=== PATIENT | female | born 1980 | race Asian ===

== ENCOUNTER 2021-06-08 17:33 | Emergency (ER) | payer MEDICAID ==
[2021-06-08] MEDS ORDERED: KETOROLAC 10 MG TAB PO ONE (19:03)
--- NOTE | 2021-06-08 19:03 | Emergency Department Report ---
ED ENT HPI - General Chief complaint: Sore Throat Stated complaint: MOUTH PAIN Time Seen by Provider: 06/08/21 18:09 Source: patient Mode of arrival: Ambulatory Limitations: No Limitations - History of Present Illness Initial comments: 40-year-old female presents to the ER today with complaints of diffuse mouth pain, as well as pain in her nose again and a headache. Patient states that she has been having these symptoms for about a 1 week. She states that she is not sure if the pain in her mouth is related to her tooth, but she is is having diffuse mouth pain. She also reports sore throat, and she is also had cold-like symptoms including rhinorrhea and nasal congestion for the past week. She denies any facial swelling, throat or tongue swelling. She denies any apparent lesions in her mouth. She denies any fever or chills. She denies any drooling, difficulty opening her mouth, difficulty breathing, fever chills or any additional symptoms at this time. MD complaint: other (Mouth pain, CHOW, nose pain ) -: week(s) (1) - Related Data Previous Rx's Medication Instructions Recorded Last Taken Type Amoxicillin [Trimox CAP] 500 mg PO Q8H #30 capsule 06/08/21 Unknown Rx Ketorolac [Toradol] 10 mg PO Q6H PRN #20 tablet 06/08/21 Unknown Rx Nystas/Diphen/Xyl Visc/Mylanta 15 ml MM Q4H PRN #120 ml 06/08/21 Unknown Rx [Magic Mouthwash] Allergies Allergy/AdvReac Type Severity Reaction Status Date / Time milk Allergy Rash Verified 06/08/21 17:39 ED Dental HPI - General Chief complaint: Sore Throat Stated complaint: MOUTH PAIN Time Seen by Provider: 06/08/21 18:09 Source: patient Mode of arrival: Ambulatory Limitations: No Limitations - Related Data Previous Rx's Medication Instructions Recorded Last Taken Type Amoxicillin [Trimox CAP] 500 mg PO Q8H #30 capsule 06/08/21 Unknown Rx Ketorolac [Toradol] 10 mg PO Q6H PRN #20 tablet 06/08/21 Unknown Rx Nystas/Diphen/Xyl Visc/Mylanta 15 ml MM Q4H PRN #120 ml 06/08/21 Unknown Rx [Magic Mouthwash] Allergies Allergy/AdvReac Type Severity Reaction Status Date / Time milk Allergy Rash Verified 06/08/21 17:39 ED Review of Systems ROS: Stated complaint: MOUTH PAIN Other details as noted in HPI Comment: All other systems reviewed and negative Constitutional: denies: chills, fever ENT: throat pain, congestion, other (Mouth pain, rhinorrhea) Respiratory: denies: cough, shortness of breath, SOB with exertion, SOB at rest, wheezing Cardiovascular: denies: chest pain, palpitations, dyspnea on exertion, edema, syncope, paroxysmal nocturnal dyspnea Gastrointestinal: denies: abdominal pain, nausea, diarrhea, constipation, hematemesis, hematochezia Genitourinary: denies: urgency, dysuria, discharge Musculoskeletal: denies: back pain, joint swelling, arthralgia Neurological: headache. denies: numbness, paresthesias, confusion, abnormal gait, vertigo Psychiatric: denies: anxiety, depression, auditory hallucinations, visual hallucinations, homicidal thoughts, suicidal thoughts Hematological/Lymphatic: denies: easy bleeding, easy bruising, swollen glands ED Past Medical Hx - Past Medical History Additional medical history: GOUT - Surgical History Additional Surgical History: BRAIN SURGERY - Medications Home Medications: Home Medications Medication Instructions Recorded Confirmed Last Taken Type Amoxicillin [Trimox CAP] 500 mg PO Q8H #30 capsule 06/08/21 Unknown Rx Ketorolac [Toradol] 10 mg PO Q6H PRN #20 tablet 06/08/21 Unknown Rx Nystas/Diphen/Xyl Visc/Mylanta 15 ml MM Q4H PRN #120 ml 06/08/21 Unknown Rx [Magic Mouthwash] ED Physical Exam - General Limitations: No Limitations General appearance: alert, anxious, other (Tearful) - Head Head exam: Present: atraumatic, normocephalic, normal inspection - Eye Eye exam: Present: normal appearance, PERRL, EOMI Pupils: Present: normal accommodation - ENT ENT exam: Present: normal exam, normal orophraynx, mucous membranes moist, other (Patient does have poor dentition, but no apparent signs of dental tenderness or abscess. No lesions noted in the mouth. No tongue or posterior pharynx swelling. She does have maxillary sinus tenderness as well as frontal sinus tenderness.) - Neck Neck exam: Present: normal inspection, full ROM, other (No facial or anterior neck cellulitis. No facial anterior neck swelling.). Absent: meningismus - Respiratory Respiratory exam: Present: normal lung sounds bilaterally. Absent: respiratory distress, wheezes, rales, rhonchi - Cardiovascular Cardiovascular Exam: Present: regular rate, normal rhythm, normal heart sounds - Neurological Exam Neurological exam: Present: alert, oriented X3, CN II-XII intact, normal gait - Psychiatric Psychiatric exam: Present: normal affect, normal mood - Skin Skin exam: Present: intact ED Course Vital Signs 06/08/21 17:40 Temperature 98.9 F Pulse Rate 85 Respiratory 18 Rate Blood Pressure 113/94 [Right] O2 Sat by Pulse 100 Oximetry ED Medical Decision Making - Medical Decision Making Patient does have some poor dentition, but overall patient oral exam including dental exam unremarkable. She has no specific area of dental tenderness. She has no oral lesion, no exudate to suggest thrush, no apparent signs of swelling or no signs of like a dental abscess. He has no facial swelling, cellulitis, tonsils and posterior pharynx are unremarkable. She has no trismus or drooling. She has no stridor. Her airway is intact. She has no meningeal signs on exam. She is not toxic or ill-appearing. She is neurologically intact with a normal gait. Her vital signs are stable. She does have maxillary and frontal sinus tenderness and she has had a cold for about a week. The pressure that she is feeling in her jaw, the roof of her mouth, and in her nose could likely related to sinus infection. Informed patient that her symptoms could be due to a sinus infection, and therefore she will be prescribed antibiotics and also medication to help her pain and help decongest the sinuses. Recommend that she follows up with her dentist and her PCP. Patient expressed understanding agree with plan. Patient stable at time of discharge. Critical care attestation.: If time is entered above; I have spent that time in minutes in the direct care of this critically ill patient, excluding procedure time. ED Disposition Clinical Impression: Acute bacterial sinusitis, Mouth pain Disposition: 01 HOME / SELF CARE / HOMELESS Is pt being admited?: No Does the pt Need Aspirin: No Condition: Stable Instructions: Sinusitis, Adult, [id number] Additional Instructions: I recommend that you take the amoxicillin as prescribed. I also recommend that you take the Zyrtec and use the Flonase to help open up his sinuses as presc ribed. Take the Toradol as prescribed for pain. You can also use the Magic mouthwash that will also help your mouth pain. Follow-up with your PCP or dentist. Return to the ER if symptoms worsens. Prescriptions: Nystas/Diphen/Xyl Visc/Mylanta [Magic Mouthwash] 15 ml MM Q4H PRN #120 ml PRN Reason: Mouth Pain Ketorolac [Toradol] 10 mg PO Q6H PRN #20 tablet PRN Reason: Pain Amoxicillin [Trimox CAP] 500 mg PO Q8H #30 capsule Referrals: PRIMARY CARE, [Referring] - 3-5 Days Forms: Work/School Release Form(ED) Time of Disposition: 19:18
[2021-06-08 20:00] VITALS: BP 112/85
== END 2021-06-08 19:59 | disposition home or self-care (01) ==
LOC: ED 17:33
DX: J01.90 Acute sinusitis, unspecified (principal); K13.79 Other lesions of oral mucosa; Z91.011 Allergy to milk products
CPT/HCPCS: 99282

== ENCOUNTER 2021-09-03 13:37 | Emergency (ER) | payer MEDICAID ==
--- NOTE | 2021-09-03 15:41 | Emergency Department Report ---
ED General Adult HPI - General Chief complaint: Abdominal Pain Stated complaint: Right-sided abdominal pain Time Seen by Provider: 09/03/21 15:01 Source: patient Mode of arrival: Ambulatory Limitations: No Limitations - History of Present Illness Initial comments: The patient is a 41-year-old female who presents to the ER today with a complaint of right flank, right lower quadrant pain and right-sided back pain. She does not believe that she is having dysuria. She was seen at an outpatient urgent care center, possibly diagnosed with a UTI or kidney stone, and started on Macrobid. She presents because her pain is getting worse. Positive mild headache. Positive nausea, no vomiting. No chest pain. Positive diarrhea. No extremity weakness or numbness. Positive feminine/vaginal discharge. No history of STI that she is aware Patient denies oral contraceptive use, travel, surgery, immobilization, DVT/PE risk factors -: Gradual, week(s) Location: back, abdomen Radiation: back Quality: stabbing, aching Improves with: rest Worsens with: movement - Related Data Previous Rx's Medication Instructions Recorded Last Taken Type Acetaminophen [Non-Aspirin Extra 500 mg PO Q6HR PRN #30 tablet 09/03/21 Unknown Rx Strength] DOXYCYCLINE Hyclate [Vibramycin] 100 mg PO Q12HR #28 capsule 09/03/21 Unknown Rx Ibuprofen [Motrin] 600 mg PO Q8H PRN #30 tablet 09/03/21 Unknown Rx Metoclopramide [Reglan] 10 mg PO QID PRN #30 tablet 09/03/21 Unknown Rx Allergies Allergy/AdvReac Type Severity Reaction Status Date / Time milk Allergy Rash Verified 06/08/21 17:39 ED Review of Systems ROS: Stated complaint: PAIN RT SIDE BACK BODY/HEADACHE Other details as noted in HPI Constitutional: denies: fever Eyes: denies: eye discharge ENT: denies: epistaxis Respiratory: denies: cough Cardiovascular: denies: chest pain Gastrointestinal: abdominal pain Genitourinary: hematuria Musculoskeletal: denies: back pain Neurological: headache ED Past Medical Hx - Past Medical History Additional medical history: GOUT - Surgical History Additional Surgical History: BRAIN SURGERY - Medications Home Medications: Home Medications Medication Instructions Recorded Confirmed Last Taken Type Acetaminophen [Non-Aspirin Extra 500 mg PO Q6HR PRN #30 tablet 09/03/21 Unknown Rx Strength] DOXYCYCLINE Hyclate [Vibramycin] 100 mg PO Q12HR #28 capsule 09/03/21 Unknown Rx Ibuprofen [Motrin] 600 mg PO Q8H PRN #30 tablet 09/03/21 Unknown Rx Metoclopramide [Reglan] 10 mg PO QID PRN #30 tablet 09/03/21 Unknown Rx ED Physical Exam - General Limitations: No Limitations General appearance: alert, in no apparent distress - Head Head exam: Present: atraumatic, normocephalic - Eye Eye exam: Present: normal appearance, EOMI. Absent: nystagmus - ENT ENT exam: Present: normal exam, normal orophraynx, mucous membranes moist, normal external ear exam - Neck Neck exam: Present: normal inspection, full ROM. Absent: tenderness, meningismus - Respiratory Respiratory exam: Present: normal lung sounds bilaterally. Absent: respiratory distress, wheezes, rales, rhonchi, stridor, decreased breath sounds - Cardiovascular Cardiovascular Exam: Present: regular rate, normal rhythm, normal heart sounds. Absent: bradycardia, tachycardia, irregular rhythm, systolic murmur, diastolic murmur, rubs, gallop - GI/Abdominal GI/Abdominal exam: Present: soft, tenderness, guarding, other (Right flank and right upper quadrant tender. Right lower quadrant tender.). Absent: distended, rebound, rigid, pulsatile mass - Extremities Exam Extremities exam: Present: normal inspection, full ROM, other (2+ pulses noted in the bilateral upper and lower extremities. There is no palpable cord. negative Homans sign. Muscular compartments are soft. The pelvis is stable.). Absent: pedal edema, calf tenderness - Back Exam Back exam: Present: normal inspection, full ROM, CVA tenderness (R). Absent: CVA tenderness (L), paraspinal tenderness, vertebral tenderness - Neurological Exam Neurological exam: Present: alert, oriented X3, other (No facial droop. Tongue midline. Extraocular movements intact bilaterally. Facial sensation intact to light touch in V1, V2, V3 distribution bilaterally. 5 and a 5 strength in 4 ext remities. Sensation intact to light touch in 4 extremities.). Absent: motor sensory deficit - Psychiatric Psychiatric exam: Present: normal affect, normal mood - Skin Skin exam: Present: warm, dry, intact, normal color. Absent: rash ED Course Vital Signs 09/03/21 13:47 Temperature 97.4 F L Pulse Rate 77 Respiratory 18 Rate Blood Pressure 103/73 O2 Sat by Pulse 98 Oximetry - Reevaluation(s) Reevaluation #1: 09/03/21 17:20 Differential diagnosis, including but not limited to: Pyelonephritis, renal colic, PID, appendicitis inflammatory bowel disease Assessment and plan: 41-year-old female with low-grade white count, presenting with right flank, right lower quadrant abdominal pain. She is very tender. We will treat her symptoms. We will obtain urinalysis, CT scan of the abdomen pelvis, and perform pelvic examination. Discussed this with the patient. She articulates understanding. She denies DVT and pulmonary embolism risk factors, she is low risk by Wells criteria for pulmonary embolism, and she is PERC negative. She further reports that she is not and has not delivered her given in the past 6 weeks. 09/03/21 17:21 09/03/21 18:35 Patient feels improved. She had cervical motion tenderness and adnexal tenderness. She also reported multiple sexual partners with intermittent barrier protection. I am suspicious for pelvic inflammatory disease. Urinalysis reviewed and appreciated, demonstrates pyuria, with bacteriuria. CT scan abdomen shows no acute findings, ovarian cyst noted. Patient counseled that we suspect that PID is the active diagnosis. She may discontinue Macrobid. Start ceftriaxone and doxycycline here in the emergency room, and discharged with appropriate antibiotics. Patient counseled to follow- up with outpatient primary care doctor, health department, or lighting technician. She articulated understanding. On final reassessment, she is smiling, comfortable, endorses improvement in pain, and is drinking water without difficulty ED Medical Decision Making - Lab Data Result diagrams: 09/03/21 15:03 09/03/21 15:03 Vital Signs 09/03/21 13:47 Temperature 97.4 F L Pulse Rate 77 Respiratory 18 Rate Blood Pressure 103/73 O2 Sat by Pulse 98 Oximetry Lab Results 09/03/21 09/03/21 09/03/21 Range/Units 15:03 15:03 15:03 WBC 12.2 H (4.5-11.0) K/mm3 RBC 3.51 L (3.65-5.03) M/mm3 Hgb 11.6 (10.1-14.3) gm/dl Hct 35.4 (30.3-42.9) % MCV 101 H (79-97) fl MCH 33 H (28-32) pg MCHC 33 (30-34) % RDW 13.3 (13.2-15.2) % Plt Count 199 (140-440) K/mm3 Lymph % (Auto) 31.5 (13.4-35.0) % [place] % (Auto) 8.5 H (0.0-7.3) % Eos % (Auto) 0.3 (0.0-4.3) % Baso % (Auto) 0.1 (0.0-1.8) % Lymph # (Auto) 3.8 (1.2-5.4) K/mm3 [place] # (Auto) 1.0 H (0.0-0.8) K/mm3 Eos # (Auto) 0.0 (0.0-0.4) K/mm3 Baso # (Auto) 0.0 (0.0-0.1) K/mm3 Seg Neutrophils % 59.6 (40.0-70.0) % Seg Neutrophils # 7.3 (1.8-7.7) K/mm3 Sodium 141 (137-145) mmol/L Potassium 3.3 L (3.6-5.0) mmol/L Chloride 107.8 H (98-107) mmol/L Carbon Dioxide 26 (22-30) mmol/L Anion Gap 11 mmol/L BUN 11 (7-17) mg/dL Creatinine 0.5 L (0.6-1.2) mg/dL Estimated GFR > 60 ml/min BUN/Creatinine Ratio 22 % Glucose 97 (65-100) mg/dL Calcium 8.3 L (8.4-10.2) mg/dL Magnesium (1.7-2.3) mg/dL Total Bilirubin 0.20 (0.1-1.2) mg/dL AST 8 (5-40) units/L ALT 11 (7-56) units/L Alkaline Phosphatase 51 (35-129) units/L Total Creatine Kinase (30-135) units/L Total Protein 5.8 L (6.3-8.2) g/dL Albumin 3.1 L (3.9-5) g/dL Albumin/Globulin Ratio 1.1 % HCG, Qual Negative (Negative) 09/03/21 Range/Units 15:03 WBC (4.5-11.0) K/mm3 RBC (3.65-5.03) M/mm3 Hgb (10.1-14.3) gm/dl Hct (30.3-42.9) % MCV (79-97) fl MCH (28-32) pg MCHC (30-34) % RDW (13.2-15.2) % Plt Count (140-440) K/mm3 Lymph % (Auto) (13.4-35.0) % Free[place] % (Auto) (0.0-7.3) % Eos % (Auto) (0.0-4.3) % Baso % (Auto) (0.0-1.8) % Lymph # (Auto) (1.2-5.4) K/mm3 Free[place] # (Auto) (0.0-0.8) K/mm3 Eos # (Auto) (0.0-0.4) K/mm3 Baso # (Auto) (0.0-0.1) K/mm3 Seg Neutrophils % (40.0-70.0) % Seg Neutrophils # (1.8-7.7) K/mm3 Sodium (137-145) mmol/L Potassium (3.6-5.0) mmol/L Chloride (98-107) mmol/L Carbon Dioxide (22-30) mmol/L Anion Gap mmol/L BUN (7-17) mg/dL Creatinine (0.6-1.2) mg/dL Estimated GFR ml/min BUN/Creatinine Ratio % Glucose (65-100) mg/dL Calcium (8.4-10.2) mg/dL Magnesium 1.70 (1.7-2.3) mg/dL Total Bilirubin (0.1-1.2) mg/dL AST (5-40) units/L ALT (7-56) units/L Alkaline Phosphatase (35-129) units/L Total Creatine Kinase 30 (30-135) units/L Total Protein (6.3-8.2) g/dL Albumin (3.9-5) g/dL Albumin/Globulin Ratio % HCG, Qual (Negative) - Radiology Data Radiology results: pending, report reviewed, image reviewed CT ABDOMEN AND PELVIS WITH CONTRAST HISTORY: acute rlq pain. COMPARISON: None. TECHNIQUE: CT images of the abdomen and pelvis were obtained following administration of intravenous contrast. All CT scans at this location are performed using CT dose reduction for ALARA by means of automated exposure control. CONTRAST: 100 ml of intravenous contrast administered. FINDINGS: Lungs/bones: Lung bases are clear. No acute osseous abnormality identified. Abdomen/pelvis: The liver, gallbladder, spleen, pancreas, adrenals, kidneys, and proximal GI tract appear unremarkable. There is a simple left ovarian cyst measuring 3.2 cm with trace pelvic free fluid which is likely physiologic in a woman of this age. The right ovary and uterus appear normal. No acute colonic abnormality identified. Terminal ileum is normal. IMPRESSION: 1. Simple left ovarian cyst. Otherwise nothing acute. Signer Name: Alo Patel MD Signed: 09/03/2021 5:09 PM Workstation Name: [id number] Critical care attestation.: If time is entered above; I have spent that time in minutes in the direct care of this critically ill patient, excluding procedure time. ED Disposition Clinical Impression: Acute abdominal pain in right flank, Bacteriuria with pyuria, Hypokalemia, Left ovarian cyst Disposition: 01 HOME / SELF CARE / HOMELESS Is pt being admited?: No Does the pt Need Aspirin: No Condition: Good Instructions: Abdominal Pain (ED), Pelvic Inflammatory Disease Additional Instructions: Patient receiving treatment today to cover the pelvic inflammatory disea se/gonorrhea/chlamydia. Cultures were sent today, and results will be available next 3-5 days. Please have your primary care doctor call the medical records department to obtain your culture results. Take the antibiotic therapy as directed. Take the nausea medication and pain medication as directed. I recommend outpatient testing for sexually transmitted diseases, including hepatitis, syphilis and HIV. I also recommend that you abstain from sexual activity until you have completed her antibiotic therapy, a physician states that it is safe for you to resume sexual activity, and any partners that you have been sexually active with have been tested/treated/evaluated for sexual transmitted diseases. Patient is also found to have mild hypokalemia today. Patient may consume foods that are high in potassium, such as banana, avocado, or potato. Ovarian cyst left side likely asymptomatic, probable incidental finding for 41-year-old female. Please follow-up with physician within 3-5 days. I recommend that you return to the ER right away with worsening pain, migration of pain, intractable nausea/vomiting, inability tolerate liquid feeds. Please return to the emergency room right away with new pain, worsened pain, migration of pain, projectile vomiting, change in mental status, confusion, inability tolerate liquid feeds, new, worsened or different symptoms not present on the initial emergency room evaluation Referrals: PRIMARY CARE, [Primary Care Provider] - 3-5 Days [facility] [Provider Group] - 3-5 Days [facility] [Provider Group] - 3-5 Days [facility] [Outside] - 3-5 Days Forms: Work/School Release Form(ED)
[2021-09-03 15:42] LABS: Basophils % (Auto) 0.1 % (0.0-1.8); Eosinophils % (Auto) 0.3 % (0.0-4.3); Hematocrit 35.4 % (30.3-42.9); Hemoglobin 11.6 gm/dl (10.1-14.3); Lymphocytes # (Auto) 3.8 K/mm3 (1.2-5.4); Lymphocytes % (Auto) 31.5 % (13.4-35.0); Mean Corpuscular HGB Conc 33 % (30-34); Mean Corpuscular Volume 101 fl (79-97); Monocytes % (Auto) 8.5 % (0.0-7.3); Platelet Count 199 K/mm3 (140-440); Red Blood Count 3.51 M/mm3 (3.65-5.03); Red Cell Distribution Width 13.3 % (13.2-15.2)
[2021-09-03 15:44] LABS: Alanine Aminotransferase 11 units/L (7-56); Albumin 3.1 g/dL (3.9-5); Blood Urea Nitrogen 11 mg/dL (7-17); Calcium 8.3 mg/dL (8.4-10.2); Hemolysis Index 0
[2021-09-03 15:47] LABS: BUN/Creatinine Ratio 22
[2021-09-03] MEDS ORDERED: SODIUM CHLORIDE 0.9% 1000 ML 1,000 ML IV ONE ×2 (15:49→18:09)
[2021-09-03] MEDS ORDERED: MORPHINE 4 MG/1 ML INJ IV ONE (15:49)
[2021-09-03] MEDS ORDERED: ONDANSETRON 4 MG/2 ML INJ IV ONE (15:49)
[2021-09-03] MEDS ORDERED: POTASSIUM CHLORIDE ER 20 MEQ TAB PO ONE (17:06)
[2021-09-03 17:53] LABS: Bacteria,Urine 1+ /HPF (Negative); Bilirubin,Urine NEG (Negative); Blood,Urine SM (Negative); Color,Urine Yellow (Yellow); Mucus,Urine FEW /HPF; Protein,Urine <15 mg/dL mg/dL (Negative); Urobilinogen,Urine < 2.0 mg/dL (<2.0)
[2021-09-03] MEDS ORDERED: HYDROmorphone 1 MG/1 ML INJ IV ONE (18:09)
--- NOTE | 2021-09-03 18:14 | Cat Scan Report ---
CT ABDOMEN AND PELVIS WITH CONTRAST HISTORY: acute rlq pain. COMPARISON: None. TECHNIQUE: CT images of the abdomen and pelvis were obtained following administration of intravenous contrast. All CT scans at this location are performed using CT dose reduction for ALARA by means of automated exposure control. CONTRAST: 100 ml of intravenous contrast administered. FINDINGS: Lungs/bones: Lung bases are clear. No acute osseous abnormality identified. Abdomen/pelvis: The liver, gallbladder, spleen, pancreas, adrenals, kidneys, and proximal GI tract a ppear unremarkable. There is a simple left ovarian cyst measuring 3.2 cm with trace pelvic free fluid which is likely phy siologic in a woman of this age. The right ovary and uterus appear normal. No acute colonic abnormality identified. Terminal ileum is normal. IMPRESSION: 1. Simple left ovarian cyst. Otherwise nothing acute. Signer Name: Alo Patel MD Signed: 09/03/2021 6:09 PM Workstation Name: [id number]
[2021-09-03] MEDS ORDERED: DOXYCYCLINE 100 MG CAP PO ONE (18:34)
[2021-09-03 20:34] VITALS: BP 126/87
== END 2021-09-03 20:40 | disposition home or self-care (01) ==
LOC: ED 13:37
DX: R10.31 Right lower quadrant pain (principal); R82.81 Pyuria; E87.6 Hypokalemia; N83.202 Unspecified ovarian cyst, left side; Z98.890 Other specified postprocedural states; Z91.011 Allergy to milk products
CPT/HCPCS: 36415; 74177; 80053; 81001; 82550; 83735; 84703; 85025; 87210; 87591; 96361; 96365; 96375; 99284; J0696; J1170; J2270; J2405; J7030; Q9967; Q0162

== ENCOUNTER 2021-09-26 09:34 | Emergency (ER) | payer MEDICAID ==
--- NOTE | 2021-09-26 10:10 | Event Note ---
ED Screening Note ED Screening Note: 41 yo comes to ER w severe doty "like when my aneurysm popped" 3 years ago; was seen at [facility]; and had crani also endorses cp and sob smells of etoh neuro intact repetatively says my head hurts light sensitivity nausea no vomiting pmh asthma sah gout anxiety/md psh crani rx gout med just finished doxy for "side infection" This initial assessment/diagnostic orders/clinical plan/treatment(s) is/are subject to change based on patients health status, clinical progression and re- assessment by fellow clinical providers in the ED. Further treatment and workup at subsequent clinical providers discretion. Patient/guardian urged not to elope from the ED as their condition may be serious if not clinically assessed and managed. Initial orders include: ct labs
--- NOTE | 2021-09-26 10:36 | Cat Scan Report ---
CT head/brain wo con INDICATION / CLINICAL INFORMATION: 41 years Female; severe doty same as with her sah 3 y ago. TECHNIQUE: Routine CT head without contrast. All CT scans at this location are performed using CT dos e reduction for ALARA by means of automated exposure control. COMPARISON: None. FINDINGS: BRAIN / INTRACRANIAL CONTENTS: Large craniotomy site seen in the right frontoparietal temporal region . Otherwise, no acute hemorrhage, mass effect, midline shift, hydrocephalus, or acute, large territori al infarct. No signs of significant atrophy or chronic infarct. No significant white matter abnormali ty seen. CRANIOCERVICAL JUNCTION: No significant abnormality. ORBITS: No significant abnormality of visualized orbits. SINUSES / MASTOIDS: Mild mucosal thickening seen in the ethmoids. ADDITIONAL FINDINGS: None. IMPRESSION: 1. No focal mass, hemorrhage, hydrocephalus, or acute, large territorial infarct. Signer Name: Jovanni Ferro MD, III Signed: 09/26/2021 10:32 AM Workstation Name: [id number]
[2021-09-26 10:53] LABS: Basophils % (Auto) 0.2 % (0.0-1.8); Hematocrit 39.9 % (30.3-42.9); Hemoglobin 13.2 gm/dl (10.1-14.3); Lymphocytes # (Auto) 1.6 K/mm3 (1.2-5.4); Lymphocytes % (Auto) 13.6 % (13.4-35.0); Mean Corpuscular HGB Conc 33 % (30-34); Mean Corpuscular Volume 100 fl (79-97); Monocytes # (Auto) 0.4 K/mm3 (0.0-0.8); Monocytes % (Auto) 3.4 % (0.0-7.3); Platelet Count 302 K/mm3 (140-440); Red Blood Count 4.01 M/mm3 (3.65-5.03); Red Cell Distribution Width 13.5 % (13.2-15.2)
[2021-09-26] MEDS: ACETAMINOPHEN 500 MG TAB PO ONE (10:59)
[2021-09-26] MEDS: ONDANSETRON 4 MG ODT TAB PO ONE (10:59)
[2021-09-26 11:02] LABS: INR 0.92 (0.87-1.13)
--- NOTE | 2021-09-26 11:36 | Emergency Department Report ---
ED General Adult HPI - General Chief complaint: Headache Stated complaint: Headache/vomiting Time Seen by Provider: 09/26/21 11:25 Source: EMS Mode of arrival: Stretcher Limitations: No Limitations - History of Present Illness Initial comments: Patient is a 41-year-old female that comes to the emergency room today complaining of a headache. She states that she did cocaine last night. She states that her headache is like when she had a prior subarachnoid hemorrhage 3 years ago. She is neurologically intact on exam in triage. Staffed with Dr. Aleman -: Gradual Location: head Severity scale (0 -10): 8 Consistency: constant Improves with: none Worsens with: none Associated Symptoms: denies other symptoms, headaches, nausea/vomiting (Reports but not in the ER). denies: confusion, chest pain, cough, diaphoresis, fever/chills, loss of appetite, malaise, rash, seizure, shortness of breath, syncope, weakness Treatments Prior to Arrival: none - Related Data Previous Rx's Medication Instructions Recorded Last Taken Type Acetaminophen [Non-Aspirin Extra 500 mg PO Q6HR PRN #30 tablet 09/03/21 Unknown Rx Strength] DOXYCYCLINE Hyclate [Vibramycin] 100 mg PO Q12HR #28 capsule 09/03/21 Unknown Rx Ibuprofen [Motrin] 600 mg PO Q8H PRN #30 tablet 09/03/21 Unknown Rx Metoclopramide [Reglan] 10 mg PO QID PRN #30 tablet 09/03/21 Unknown Rx Allergies Allergy/AdvReac Type Severity Reaction Status Date / Time milk Allergy Rash Verified 06/08/21 17:39 ED Review of Systems ROS: Stated complaint: Headache/vomiting Other details as noted in HPI Comment: All other systems reviewed and negative ED Past Medical Hx - Past Medical History Previous Medical History?: Yes Additional medical history: GOUT - Surgical History Past Surgical History?: Yes Additional Surgical History: BRAIN SURGERY - Social History Smoking Status: Current Some Day Smoker Substance Use Type: Alcohol, Cocaine, Marijuana - Medications Home Medications: Home Medications Medication Instructions Recorded Confirmed Last Taken Type Acetaminophen [Non-Aspirin Extra 500 mg PO Q6HR PRN #30 tablet 09/03/21 Unknown Rx Strength] DOXYCYCLINE Hyclate [Vibramycin] 100 mg PO Q12HR #28 capsule 09/03/21 Unknown Rx Ibuprofen [Motrin] 600 mg PO Q8H PRN #30 tablet 09/03/21 Unknown Rx Metoclopramide [Reglan] 10 mg PO QID PRN #30 tablet 09/03/21 Unknown Rx ED Physical Exam - General Limitations: No Limitations General appearance: alert, in no apparent distress - Head Head exam: Present: atraumatic, normocephalic - Eye Eye exam: Present: normal appearance - ENT ENT exam: Present: mucous membranes moist - Neck Neck exam: Present: normal inspection - Respiratory Respiratory exam: Present: normal lung sounds bilaterally. Absent: respiratory distress - Cardiovascular Cardiovascular Exam: Present: regular rate, normal rhythm. Absent: systolic murmur, diastolic murmur, rubs, gallop - GI/Abdominal GI/Abdominal exam: Present: soft, normal bowel sounds - Extremities Exam Extremities exam: Present: normal inspection - Back Exam Back exam: Present: normal inspection - Neurological Exam Neurological exam: Present: alert, oriented X3 - Psychiatric Psychiatric exam: Present: normal affect, normal mood - Skin Skin exam: Present: warm, dry, intact, normal color. Absent: rash ED Course Vital Signs 09/26/21 09/26/21 09:37 13:14 Temperature 98.1 F 97.8 F Pulse Rate 94 H 87 Respiratory 16 16 Rate Blood Pressure 126/94 Blood Pressure 140/80 [Right] O2 Sat by Pulse 98 98 Oximetry ED Medical Decision Making - Lab Data Result diagrams: 09/26/21 10:11 09/26/21 10:11 - Radiology Data Radiology results: report reviewed, image reviewed nap - Medical Decision Making Lab Results 09/26/21 09/26/21 09/26/21 Range/Units 10:11 10:11 10:11 WBC 11.7 H (4.5-11.0) K/mm3 RBC 4.01 (3.65-5.03) M/mm3 Hgb 13.2 (10.1-14.3) gm/dl Hct 39.9 (30.3-42.9) % MCV 100 H (79-97) fl MCH 33 H (28-32) pg MCHC 33 (30-34) % RDW 13.5 (13.2-15.2) % Plt Count 302 (140-440) K/mm3 Lymph % (Auto) 13.6 (13.4-35.0) % [place] % (Auto) 3.4 (0.0-7.3) % Eos % (Auto) 0.0 (0.0-4.3) % Baso % (Auto) 0.2 (0.0-1.8) % Lymph # (Auto) 1.6 (1.2-5.4) K/mm3 [place] # (Auto) 0.4 (0.0-0.8) K/mm3 Eos # (Auto) 0.0 (0.0-0.4) K/mm3 Baso # (Auto) 0.0 (0.0-0.1) K/mm3 Seg Neutrophils % 82.8 H (40.0-70.0) % Seg Neutrophils # 9.7 H (1.8-7.7) K/mm3 PT 13.3 (12.2-14.9) Sec. INR 0.92 (0.87-1.13) Sodium 146 H (137-145) mmol/L Potassium 3.3 L (3.6-5.0) mmol/L Chloride 107.0 (98-107) mmol/L Carbon Dioxide 21 L (22-30) mmol/L Anion Gap 21 mmol/L BUN 12 (7-17) mg/dL Creatinine 0.5 L (0.6-1.2) mg/dL Estimated GFR > 60 ml/min BUN/Creatinine Ratio 24 % Glucose 102 H (65-100) mg/dL Calcium 9.1 (8.4-10.2) mg/dL Total Bilirubin 0.20 (0.1-1.2) mg/dL AST 14 (5-40) units/L ALT 12 (7-56) units/L Alkaline Phosphatase 71 (35-129) units/L Total Creatine Kinase (30-135) units/L Troponin T < 0.010 (0.00-0.029) ng/mL Total Protein 7.7 (6.3-8.2) g/dL Albumin 4.0 (3.9-5) g/dL Albumin/Globulin Ratio 1.1 % HCG, Qual (Negative) Urine Color (Yellow) Urine Turbidity (Clear) Urine pH (5.0-7.0) Ur Specific [place] (1.003-1.030) Urine Protein (Negative) mg/dL Urine Glucose (UA) (Negative) mg/dL Urine Ketones (Negative) mg/dL Urine Blood (Negative) Urine Nitrite (Negative) Urine Bilirubin (Negative) Urine Urobilinogen (<2.0) mg/dL Ur Leukocyte Esterase (Negative) Urine WBC (Auto) (0.0-6.0) /HPF Urine RBC (Auto) (0.0-6.0) /HPF U Epithel Cells (Auto) (0-13.0) /HPF Urine Mucus /HPF Urine Opiates Screen Urine Methadone Screen Ur Barbiturates Screen Ur Phencyclidine Scrn Ur Amphetamines Screen U Benzodiazepines Scrn Urine Cocaine Screen U Marijuana (THC) Screen Drugs of Abuse Note Plasma/Serum Alcohol (0-0.07) % 09/26/21 09/26/21 09/26/21 Range/Units 10:11 10:11 10:11 WBC (4.5-11.0) K/mm3 RBC (3.65-5.03) M/mm3 Hgb (10.1-14.3) gm/dl Hct (30.3-42.9) % MCV (79-97) fl MCH (28-32) pg MCHC (30-34) % RDW (13.2-15.2) % Plt Count (140-440) K/mm3 Lymph % (Auto) (13.4-35.0) % [place] % (Auto) (0.0-7.3) % Eos % (Auto) (0.0-4.3) % Baso % (Auto) (0.0-1.8) % Lymph # (Auto) (1.2-5.4) K/mm3 [place] # (Auto) (0.0-0.8) K/mm3 Eos # (Auto) (0.0-0.4) K/mm3 Baso # (Auto) (0.0-0.1) K/mm3 Seg Neutrophils % (40.0-70.0) % Seg Neutrophils # (1.8-7.7) K/mm3 PT (12.2-14.9) Sec. INR (0.87-1.13) Sodium (137-145) mmol/L Potassium (3.6-5.0) mmol/L Chloride (98-107) mmol/L Carbon Dioxide (22-30) mmol/L Anion Gap mmol/L BUN (7-17) mg/dL Creatinine (0.6-1.2) mg/dL Estimated GFR ml/min BUN/Creatinine Ratio % Glucose (65-100) mg/dL Calcium (8.4-10.2) mg/dL Total Bilirubin (0.1-1.2) mg/dL AST (5-40) units/L ALT (7-56) units/L Alkaline Phosphatase (35-129) units/L Total Creatine Kinase 57 (30-135) units/L Troponin T (0.00-0.029) ng/mL Total Protein (6.3-8.2) g/dL Albumin (3.9-5) g/dL Albumin/Globulin Ratio % HCG, Qual Negative (Negative) Urine Color (Yellow) Urine Turbidity (Clear) Urine pH (5.0-7.0) Ur Specific [place] (1.003-1.030) Urine Protein (Negative) mg/dL Urine Glucose (UA) (Negative) mg/dL Urine Ketones (Negative) mg/dL Urine Blood (Negative) Urine Nitrite (Negative) Urine Bilirubin (Negative) Urine Urobilinogen (<2.0) mg/dL Ur Leukocyte Esterase (Negative) Urine WBC (Auto) (0.0-6.0) /HPF Urine RBC (Auto) (0.0-6.0) /HPF U Epithel Cells (Auto) (0-13.0) /HPF Urine Mucus /HPF Urine Opiates Screen Urine Methadone Screen Ur Barbiturates Screen Ur Phencyclidine Scrn Ur Amphetamines Screen U Benzodiazepines Scrn Urine Cocaine Screen U Marijuana (THC) Screen Drugs of Abuse Note Plasma/Serum Alcohol 0.09 H (0-0.07) % 09/26/21 09/26/21 Range/Units Unknown Unknown WBC (4.5-11.0) K/mm3 RBC (3.65-5.03) M/mm3 Hgb (10.1-14.3) gm/dl Hct (30.3-42.9) % MCV (79-97) fl MCH (28-32) pg MCHC (30-34) % RDW (13.2-15.2) % Plt Count (140-440) K/mm3 Lymph % (Auto) (13.4-35.0) % [place] % (Auto) (0.0-7.3) % Eos % (Auto) (0.0-4.3) % Baso % (Auto) (0.0-1.8) % Lymph # (Auto) (1.2-5.4) K/mm3 [place] # (Auto) (0.0-0.8) K/mm3 Eos # (Auto) (0.0-0.4) K/mm3 Baso # (Auto) (0.0-0.1) K/mm3 Seg Neutrophils % (40.0-70.0) % Seg Neutrophils # (1.8-7.7) K/mm3 PT (12.2-14.9) Sec. INR (0.87-1.13) Sodium (137-145) mmol/L Potassium (3.6-5.0) mmol/L Chloride (98-107) mmol/L Carbon Dioxide (22-30) mmol/L Anion Gap mmol/L BUN (7-17) mg/dL Creatinine (0.6-1.2) mg/dL Estimated GFR ml/min BUN/Creatinine Ratio % Glucose (65-100) mg/dL Calcium (8.4-10.2) mg/dL Total Bilirubin (0.1-1.2) mg/dL AST (5-40) units/L ALT (7-56) units/L Alkaline Phosphatase (35-129) units/L Total Creatine Kinase (30-135) units/L Troponin T (0.00-0.029) ng/mL Total Protein (6.3-8.2) g/dL Albumin (3.9-5) g/dL Albumin/Globulin Ratio % HCG, Qual (Negative) Urine Color Yellow (Yellow) Urine Turbidity Hazy (Clear) Urine pH 6.0 (5.0-7.0) Ur Specific [place] 1.023 (1.003-1.030) Urine Protein <15 mg/dl (Negative) mg/dL Urine Glucose (UA) Neg (Negative) mg/dL Urine Ketones Neg (Negative) mg/dL Urine Blood Mod (Negative) Urine Nitrite Neg (Negative) Urine Bilirubin Neg (Negative) Urine Urobilinogen < 2.0 (<2.0) mg/dL Ur Leukocyte Esterase Lg (Negative) Urine WBC (Auto) 10.0 H (0.0-6.0) /HPF Urine RBC (Auto) 18.0 (0.0-6.0) /HPF U Epithel Cells (Auto) 25.0 H (0-13.0) /HPF Urine Mucus 2+ /HPF Urine Opiates Screen Presumptive negative Urine Methadone Screen Presumptive negative Ur Barbiturates Screen Presumptive negative Ur Phencyclidine Scrn Presumptive negative Ur Amphetamines Screen Presumptive negative U Benzodiazepines Scrn Presumptive negative Urine Cocaine Screen Presumptive positive U Marijuana (THC) Screen Presumptive positive Drugs of Abuse Note Disclamer Plasma/Serum Alcohol (0-0.07) % Vital Signs 09/26/21 09:37 Temperature 98.1 F Pulse Rate 94 H Respiratory 16 Rate Blood Pressure 140/80 [Right] O2 Sat by Pulse 98 Oximetry Labs noted urine UDS and UA noted CT negative for bleed. Patient has remained neurologically intact during her stay in the ER. Patient has been given Tylenol for pain. I gave her Zofran for nausea. Have replaced her potassium. I have asked Annette to send patient home with family. Vital signs have remained normal during ER visit Vital Signs 09/26/21 09/26/21 09:37 13:14 Temperature 98.1 F 97.8 F Pulse Rate 94 H 87 Respiratory 16 16 Rate Blood Pressure 126/94 Blood Pressure 140/80 [Right] O2 Sat by Pulse 98 98 Oximetry Patient is being discharged home with discharge plan of care including diet, activity, medications and follow-up. Patient verbalizes understanding. She has been given written discharge instructions as well. I have advised her to avoid substance abuse given her history. Patient neurologically intact on discharge. She is ambulatory and taking p.o. - Differential Diagnosis Rule out subarachnoid hemorrhage Critical care attestation.: If time is entered above; I have spent that time in minutes in the direct care of this critically ill patient, excluding procedure time. ED Disposition Clinical Impression: Polysubstance abuse, Hypokalemia Headache Qualifiers: Headache type: unspecified Disposition: 01 HOME / SELF CARE / HOMELESS Is pt being admited?: No Does the pt Need Aspirin: No Condition: Stable Instructions: Substance Use Disorder Additional Instructions: avoid drugs and alcohol stay well hydrated with water follow up with pcp in 48 hours for recheck referral below Referrals: JOVON KARIMI MD [Staff Physician] - 3-5 Days Time of Disposition: 12:33
[2021-09-26 11:39] LABS: Alanine Aminotransferase 12 units/L (7-56); Blood Urea Nitrogen 12 mg/dL (7-17); Calcium 9.1 mg/dL (8.4-10.2); Hemolysis Index 5
[2021-09-26 11:43] LABS: BUN/Creatinine Ratio 24
[2021-09-26] MEDS ORDERED: POTASSIUM CHLORIDE ER 20 MEQ TAB PO ONE (11:53)
[2021-09-26 12:03] LABS: Bilirubin,Urine NEG (Negative); Blood,Urine MOD (Negative); Color,Urine Yellow (Yellow); Mucus,Urine 2+ /HPF; Protein,Urine <15 mg/dL mg/dL (Negative); Urobilinogen,Urine < 2.0 mg/dL (<2.0)
[2021-09-26 12:07] LABS: Amphetamine Screen,Urine PRESUMPTIVE NEGATIVE; Benzodiazepines Screen,Urine PRESUMPTIVE NEGATIVE; Cannabinoid Screen,Urine PRESUMPTIVE POSITIVE; Cocaine Screen,Urine PRESUMPTIVE POSITIVE; Methadone Screen,Urine PRESUMPTIVE NEGATIVE; Opiate Screen,Urine PRESUMPTIVE NEGATIVE
--- NOTE | 2021-09-26 12:07 | Electrocardiograph Report ---
Test Date: 2021-09-26 Test Time: 11:41:07 Pat Name: VERNON PEÑA Department: Room: Gender: F [employer] System Administrator: CHANELLE : 1980 Requested By: ROMI CAO Order Number: [id number] Reading MD: Ziggy Campbell Measurements Intervals [place] Rate: 82 P: 67 PA: 110 QRS: 76 QRSD: 80 T: 72 QT: 377 QTc: 441 Interpretive Statements Sinus rhythm Consider left ventricular hypertrophy Nonspecific T abnrm, anterolateral leads No previous ECG available for comparison Electronically Signed On 09-26-2021 12:07:14 EDT by Ziggy Campbell
[2021-09-26 13:16] VITALS: BP 126/94
== END 2021-09-26 13:21 | disposition home or self-care (01) ==
LOC: ED 09:34
DX: F19.10 Other psychoactive substance abuse, uncomplicated (principal); E87.6 Hypokalemia; R51.9 Headache, unspecified; F17.200 Nicotine dependence, unspecified, uncomplicated; Z91.011 Allergy to milk products; Z79.899 Other long term (current) drug therapy
CPT/HCPCS: 36415; 70450; 80053; 80307; 80320; 81001; 82550; 84484; 84703; 85025; 85610; 87086; 93005; 99284; J3490; G0480; Q0162

== ENCOUNTER 2021-10-04 00:07 | Emergency (ER) | payer MEDICAID ==
[2021-10-04] MEDS ORDERED: SODIUM CHLORIDE 0.9% 1000 ML 1,000 ML IV ONE (03:31)
[2021-10-04 04:32] LABS: Basophils % (Auto) 0.3 % (0.0-1.8); Eosinophils % (Auto) 0.4 % (0.0-4.3); Hematocrit 38.3 % (30.3-42.9); Hemoglobin 12.6 gm/dl (10.1-14.3); Lymphocytes # (Auto) 2.8 K/mm3 (1.2-5.4); Lymphocytes % (Auto) 24.5 % (13.4-35.0); Mean Corpuscular HGB Conc 33 % (30-34); Mean Corpuscular Volume 99 fl (79-97); Monocytes # (Auto) 0.9 K/mm3 (0.0-0.8); Platelet Count 203 K/mm3 (140-440); Red Blood Count 3.88 M/mm3 (3.65-5.03); Red Cell Distribution Width 13.3 % (13.2-15.2)
[2021-10-04 05:00] LABS: Alanine Aminotransferase 18 units/L (7-56); Albumin 3.4 g/dL (3.9-5); Blood Urea Nitrogen 10 mg/dL (7-17); Calcium 8.1 mg/dL (8.4-10.2); Hemolysis Index 6
[2021-10-04 05:04] LABS: Bilirubin,Urine NEG (Negative); Blood,Urine LG (Negative); Color,Urine Yellow (Yellow); Urobilinogen,Urine < 2.0 mg/dL (<2.0)
[2021-10-04 05:06] LABS: BUN/Creatinine Ratio 17
[2021-10-04 05:09] LABS: RBC,Urine < 1.0 /HPF (0.0-6.0); WBC,Urine < 1.0 /HPF (0.0-6.0)
[2021-10-04 05:14] VITALS: BP 131/90
[2021-10-04 05:22] LABS: Amphetamine Screen,Urine PRESUMPTIVE POSITIVE; Benzodiazepines Screen,Urine PRESUMPTIVE NEGATIVE; Cannabinoid Screen,Urine PRESUMPTIVE POSITIVE; Cocaine Screen,Urine PRESUMPTIVE POSITIVE; Methadone Screen,Urine PRESUMPTIVE NEGATIVE; Opiate Screen,Urine PRESUMPTIVE NEGATIVE
--- NOTE | 2021-10-04 05:27 | Emergency Department Report ---
ED General Adult HPI - General Chief complaint: Altered Mental Status Stated complaint: BH/SUBSTANCE ABUSE PUI?: Yes Time Seen by Provider: 10/04/21 03:25 Source: EMS Mode of arrival: Stretcher Limitations: No Limitations - History of Present Illness Initial comments: Patient is a 41-year-old female with history of polysubstance abuse brought in by EMS after she called out to them reportedly. EMS states when they arrived patient was running around in a manic state. EMS had to administer ketamine for patient's agitation. Mother arrived and states that the patient has done this multiple times especially when she uses cocaine. I asked the patient why she called EMS and she simply states that she did not feel well after using. L Severity scale (0 -10): 0 - Related Data Previous Rx's Medication Instructions Recorded Last Taken Type Acetaminophen [Non-Aspirin Extra 500 mg PO Q6HR PRN #30 tablet 09/03/21 Unknown Rx Strength] DOXYCYCLINE Hyclate [Vibramycin] 100 mg PO Q12HR #28 capsule 09/03/21 Unknown Rx Ibuprofen [Motrin] 600 mg PO Q8H PRN #30 tablet 09/03/21 Unknown Rx Metoclopramide [Reglan] 10 mg PO QID PRN #30 tablet 09/03/21 Unknown Rx Allergies Allergy/AdvReac Type Severity Reaction Status Date / Time milk Allergy Rash Verified 06/08/21 17:39 ED Review of Systems ROS: Stated complaint: BH/SUBSTANCE ABUSE Other details as noted in HPI Constitutional: malaise Respiratory: denies: cough, shortness of breath, wheezing Cardiovascular: denies: chest pain, palpitations Gastrointestinal: denies: abdominal pain, nausea, diarrhea Genitourinary: denies: urgency, dysuria, discharge Musculoskeletal: denies: back pain, joint swelling, arthralgia Skin: denies: rash, lesions Neurological: denies: headache, weakness, paresthesias ED Past Medical Hx - Past Medical History Hx Psychiatric Treatment: Yes Additional medical history: GOUT. Hx of Cocaine use - Surgical History Additional Surgical History: BRAIN SURGERY - Social History Smoking Status: Former Smoker Substance Use Type: Cocaine - Medications Home Medications: Home Medications Medication Instructions Recorded Confirmed Last Taken Type Acetaminophen [Non-Aspirin Extra 500 mg PO Q6HR PRN #30 tablet 09/03/21 Unknown Rx Strength] DOXYCYCLINE Hyclate [Vibramycin] 100 mg PO Q12HR #28 capsule 09/03/21 Unknown Rx Ibuprofen [Motrin] 600 mg PO Q8H PRN #30 tablet 09/03/21 Unknown Rx Metoclopramide [Reglan] 10 mg PO QID PRN #30 tablet 09/03/21 Unknown Rx ED Physical Exam - General Limitations: No Limitations General appearance: alert, appears intoxicated (Mildly intoxicated and/or drowsy. Able to respond appropriately.) - Head Head exam: Present: atraumatic, normocephalic - Eye Eye exam: Present: normal appearance, EOMI - Neck Neck exam: Present: normal inspection - Respiratory Respiratory exam: Present: normal lung sounds bilaterally. Absent: respiratory distress - Cardiovascular Cardiovascular Exam: Present: regular rate, normal rhythm. Absent: systolic murmur, diastolic murmur, rubs, gallop - GI/Abdominal GI/Abdominal exam: Present: soft, normal bowel sounds - Rectal Rectal exam: Present: deferred - Extremities Exam Extremities exam: Present: normal inspection - Neurological Exam Neurological exam: Present: alert, oriented X3, CN II-XII intact - Psychiatric Psychiatric exam: Present: normal affect, normal mood - Skin Skin exam: Present: warm, dry, intact, normal color ED Course Vital Signs 10/04/21 10/04/21 10/04/21 00:08 02:00 02:15 Temperature 98.9 F Pulse Rate 102 H 80 Respiratory 16 18 Rate Blood Pressure 126/70 116/83 [Left] O2 Sat by Pulse 99 100 98 Oximetry 10/04/21 10/04/21 10/04/21 03:12 04:00 05:13 Temperature Pulse Rate 96 H 88 94 H Respiratory 18 18 18 Rate Blood Pressure 115/76 135/92 131/90 [Left] O2 Sat by Pulse 96 99 100 Oximetry ED Medical Decision Making - Lab Data Result diagrams: 10/04/21 04:05 10/04/21 04:05 - Medical Decision Making Labs reviewed. Patient has moderate hypokalemia with serum potassium of 3. Will give oral repletion and discharged home on oral potassium. Vital signs are stable. Discharge with mother and given resources for rehabilitation/detox. Critical care attestation.: If time is entered above; I have spent that time in minutes in the direct care of this critically ill patient, excluding procedure time. ED Disposition Clinical Impression: Substance abuse Disposition: 01 HOME / SELF CARE / HOMELESS Is pt being admited?: No Does the pt Need Aspirin: No Condition: Stable Instructions: Substance Use Disorder Referrals: PRIMARY CARE, [Primary Care Provider] - 3-5 Days Time of Disposition: 05:27 Print Language: BERMUDIAN
== END 2021-10-04 05:45 | disposition home or self-care (01) ==
LOC: ED 00:07 → EEVIPCON 00:07 → ED 05:45
DX: F19.10 Other psychoactive substance abuse, uncomplicated (principal); Z13.30 Encounter for screening examination for mental health and behavioral disorders, unspecified; Z87.891 Personal history of nicotine dependence; Z79.899 Other long term (current) drug therapy
CPT/HCPCS: 36415; 80053; 80307; 81001; 85025; 96360; 99284; J7030; 80320; Q0162; G0480